=== PATIENT | male | born 1995 ===

== ENCOUNTER 2021-01-05 09:19 | Outpatient (CLI) | payer OTHER | END 2021-01-05 09:21 | disposition home or self-care (01) | LOC: RAD 09:19 | PROVIDERS: ATTEND General Practice | DX: M25.561 Pain in right knee (principal); M25.511 Pain in right shoulder; S20.229A Contusion of unspecified back wall of thorax, initial encounter; G89.11 Acute pain due to trauma; M25.571 Pain in right ankle and joints of right foot ==

== ENCOUNTER 2021-01-18 07:30 | Emergency (ER) | payer OTHER ==
[~2021-01-18] VITALS: Ht 177.8 cm; Wt 142.4 kg
== END 2021-01-18 10:22 | disposition home or self-care (01) ==
LOC: ER 07:30
DX: S80.11XA Contusion of right lower leg, initial encounter (principal); V49.9XXA Car occupant (driver) (passenger) injured in unspecified traffic accident, initial encounter; Y93.89 Activity, other specified; Y92.488 Other paved roadways as the place of occurrence of the external cause; Y99.8 Other external cause status